=== PATIENT | male | born 1945 | race Caucasian/White ===

== ENCOUNTER → 2018-01-17 | Outpatient (CLI) | payer BC ==
--- NOTE | 2018-01-17 12:14 | CARD ---
MR#: [id number] Date of Study: 01/17/2018 Ordering Physician: BENJAMIN HARRISON, Referring Physician: BENJAMIN HARRISON, Tech: Soniya Ames RDCS APPROVED REPORT EXAM: Two-dimensional and M-mode echocardiogram with Doppler and color Doppler. Other Information Quality : Good INDICATION Hypertension/HCVD 2D DIMENSIONS RVDd2.4 (2.9-3.5cm)Left Atrium(2D)4.4 (1.6-4.0cm) IVSd1.6 (0.7-1.1cm)Aortic Root(2D)2.9 (2.0-3.7cm) LVDd4.8 (3.9-5.9cm)LVOT Diameter2.2 (1.8-2.4cm) PWd1.2 (0.7-1.1cm)LVDs2.4 (2.5-4.0cm) FS (%) 30.2 %SV87.5 ml LVEF(%)60.0 (>50%) Aortic Valve AoV Peak Philip.124.0cm/sAoV VTI23.0cm AO Peak GR.6.2mmHgLVOT Peak Philip.85.2cm/s AO Mean GR.4mmHgAVA (VMAX)2.50cm2 MACKENZIE (VTI)2.20cm2 Mitral Valve MV E Qyybundg41.0cm/sMV DECEL QJAY883ri MV A Imhoiryk76.8cm/sE/A Ratio1.1 Pulmonary Vein S1 Mgfqtuib07.3cm/sD2 Wxgcjilu47.3cm/s LEFT VENTRICLE The left ventricle is normal size. There is mild to moderate concentric left ventricular hypertrophy. The left ventricular systolic function is normal. The Ejection Fraction is 65-70%. There is normal L V segmental wall motion. Transmitral Doppler flow pattern is Grade II-pseudonormal filling dynamics. RIGHT VENTRICLE The right ventricle is normal size. The right ventricular systolic function is normal. ATRIA The left atrium is mildly dilated. The right atrium size is normal. The interatrial septum is intact with no evidence for an atrial septal defect or patent foramen ovale as noted on 2-D or Doppler imagi ng. AORTIC VALVE The aortic valve is calcified but opens well. Doppler and Color Flow revealed no significant aortic r egurgitation. There is no significant aortic valvular stenosis. MITRAL VALVE The mitral valve is calcified but opens well. There is no evidence of mitral valve prolapse. There is no mitral valve stenosis. Doppler and Color-flow revealed trace mitral regurgitation. TRICUSPID VALVE The tricuspid valve is normal in structure and function. Doppler and Color Flow revealed no tricuspid valve regurgitation noted. There is no tricuspid valve stenosis. PULMONIC VALVE The pulmonic valve is not well visualized. Doppler and Color Flow revealed trace pulmonic valvular re gurgitation. There is no pulmonic valvular stenosis. GREAT VESSELS The aortic root is normal in size. The ascending aorta is normal in size. The IVC is normal in size a nd collapses >50% with inspiration. PERICARDIAL EFFUSION There is no evidence of significant pericardial effusion. Critical Notification Critical Value: No <Conclusion> The left ventricular systolic function is normal. The Ejection Fraction is 65-70%. There is normal LV segmental wall motion. There is mild to moderate concentric left ventricular hypertrophy. The left atrium is mildly dilated. Trace mitral regurgitation. There is no evidence of significant pericardial effusion. Signed by : Jose Cruz Brown, Electronically Approved : 01/17/2018 12:14:21
--- NOTE | 2018-01-17 14:08 | RAD ---
MR#: [id number] Date of Study: 01/17/2018 Ordering Physician: BENJAMIN HARRISON, Referring Physician: DENIZ GAYLE Tech: BOZENA Goodman ARRT (R) (N) APPROVED REPORT Test Type: Exercise Stress Nurse/Tech: Tammy Baker RN Test Indications: HTN Cardiac History: HTN Medications: See Electronic Medical Record Medical History: See Electronic Medical Record Resting ECG: SR Resting Heart Rate: 60 bpm Resting Blood Pressure: 171/102mmHg Pretest Chest Pain: No chest pain Nurse/Tech Notes Lungs CTA, S1S2, SR Consent: The procedure was explained to the patient in lay terms. Informed consent was witnessed. Adalberto eout was entered into [employer]. History and Stress Test performed by Tammy Baker RN Stress Symptoms dyspnea, no chest pain POST EXERCISE Reason for Termination: Reached target heart rate Target HR: 124 Exercise duration: 11:16 min:sec, 2 Stage Max Blood Pressure: 199/98mmHg Blood Pressure response to exercise: Normal blood pressure response during stress. Heart Rate response to exercise: normal response Chest Pain: No. Arrhythmia: No. ST Change: No. INTERPRETATION Stress EKG Conclusion: Baseline EKG showed sinus rhythm. No ischemic changes at peak stress. No arr hythmias. Imaging Protocol IMAGE PROTOCOL: Rest Tc-99m/stress Tc-99m 1 day Rest: Stress: Viability: Radiopharm.Tc99m IboccxwhwZg35x Sestamibi Dose11.8mCi 32mCi Img Date 01/17/2018 01/17/2018 Inj-Img [id number]. 75min. Rest Admin Site:IV - Left AntecubitalAdministrator:BOZENA Goodman ARRT (R)(N) Stress Admin Site: IV - Left AntecubitalAdministrator: ORLIN Urias STRESS DATA End Diast. Vol.138.0mlAv. Heart Rate65.0bpm End Syst. Vol.75.0mlCO Index BSA0.0L/min Myocardial Lqhk876.0gEject. Notoxmap50.0% Stress Rates Pk. Fill Rate0.95EDV/secLVtime Pk. Fill 244.97msec Pk. Empty Rate2.48ESV/secLVtime Pk. Yrpyk411.39msec /3 Pk. Fill0.37EDV/sec Stress Scores Regional WT3.00Summed WT45.00 Regional WM0.00Summed WM25.00 LV Perfusion Scintigraphic images did not show any significant fixed or reversible defects. Wall Motion Mild left ventricle systolic dysfunction with ejection fraction calculated at 46%. LV Perf. Quant 17 Seg. SSS1.00 17 Seg. SRS0.00 17 Seg. SDS1.00 Stress Defect Extent (% LAD)0.00Rest Defect Extent (% LAD)0.00Rev. Defect Extent (% LAD)0.00 Stress Defect Extent (% LCX) 13.80Rest Defect Extent (% LCX)5.00Rev. Defect Extent (% LCX)0.00 Stress Defect Extent (% RCA)0.00Rest Defect Extent (% RCA)0.00Rev. Defect Extent (% RCA)0.00 Stress Defect Extent (% NANDINI)2.40Rest Defect Extent (% NANDINI)0.90Rev. Defect Extent (% NANDINI)0.00 Conclusion 1. Treadmill exercise cardioisotope stress test did not show any evidence of ischemia or infarct. 2. Mild left ventricle systolic dysfunction with ejection fraction calculated at 46%. 3. Patient had good activity tolerance. Low risk for cardiac events. Signed by : Jose Cruz Brown, Electronically Approved : 01/17/2018 14:07:45
== END | disposition home or self-care (01) ==
LOC: NM 09:07
PROVIDERS: ATTEND Internal Medicine Cardiovascular Disease
DX: I11.9 Hypertensive heart disease without heart failure (principal)
CPT/HCPCS: 78452; 93017; 93306; 96374; 96376; A9500